=== PATIENT | female | born 1995 | race Caucasian/White ===

== ENCOUNTER 2020-12-27 08:05 | Emergency (ER) | payer OTHER ==
[2020-12-27 08:13] VITALS: BP 119/72; PULSE 72; TEMP 98.8; BMI 29.5
== END 2020-12-27 09:45 | disposition home or self-care (01) ==
LOC: JERFT 08:05
DX: R59.0 Localized enlarged lymph nodes (principal)
CPT/HCPCS: 99281-25

== ENCOUNTER 2021-10-18 10:05 | Emergency (ER) | payer OTHER ==
[2021-10-18 10:15] VITALS: BP 114/64; PULSE 76; RESP 18; TEMP 98; BMI 30.2
[2021-10-18] MEDS ORDERED: IBUPROFEN 600 MG TABLET (FP) PO ONE ×2 (10:25→10:49)
== END 2021-10-18 12:02 | disposition home or self-care (01) ==
LOC: JERFT 10:05
DX: S90.821A Blister (nonthermal), right foot, initial encounter (principal); Y99.8 Other external cause status
CPT/HCPCS: 73610-TC-RT-FY; 73630-TC-RT-FY; 99283-25

== ENCOUNTER 2021-12-10 23:34 | Emergency (ER) | payer OTHER ==
[2021-12-10 23:47] VITALS: BP 102/67; PULSE 86; RESP 18; TEMP 98; BMI 30.2
[2021-12-11] MEDS ORDERED: DIPHTH,PERTUSS(ACELL),TET 0.5 ML DISP.SYRIN IM ONE ×2 (00:37→00:50)
== END 2021-12-11 02:18 | disposition home or self-care (01) ==
LOC: JER 23:34
PROC: 3E0234Z Introduction of Serum, Toxoid and Vaccine into Muscle, Percutaneous Approach (ICD-10-PCS; principal; 2021-12-10)
PROC: 2W3KX1Z Immobilization of Left Finger using Splint (ICD-10-PCS; 2021-12-10)
DX: S62.657A Nondisplaced fracture of middle phalanx of left little finger, initial encounter for closed fracture (principal); W01.0XXA Fall on same level from slipping, tripping and stumbling without subsequent striking against object, initial encounter; Y93.31 Activity, mountain climbing, rock climbing and wall climbing
CPT/HCPCS: 29130; 73130-TC-LT-FY; 90471; 90715; 99284-25